=== PATIENT | female | born 1955 | race Caucasian/White ===

== ENCOUNTER → 2020-10-28 | Emergency (ER) | payer OTHER ==
[~2020-10-28] VITALS: Ht 165.1 cm; Wt 68.9 kg
[~2020-10-28] MED LIST: CHILDREN'S ASPI81 MG; DEPAKOTE ER250 MG; LIPITOR40 M1; SEROQUEL25 MG
== END | disposition home or self-care (01) ==
LOC: ER 19:48
DX: R60.0 Localized edema (principal); I87.2 Venous insufficiency (chronic) (peripheral)